=== PATIENT | male | born 1990 | race Caucasian/White ===

== ENCOUNTER → 2020-11-09 | Outpatient (CLI) | payer BC, OTHER | LOC: DTC 10:15 | DX: E10.9 Type 1 diabetes mellitus without complications (principal) | CPT/HCPCS: G0108 ==

== ENCOUNTER → 2021-07-25 | Outpatient (CLI) | payer BC | LOC: DTC 09:39 | DX: E10.9 Type 1 diabetes mellitus without complications (principal) | CPT/HCPCS: G0108 ==